=== PATIENT | female | born 1965 | race African-American/Black ===

== ENCOUNTER 2019-03-30 21:04 | Inpatient (IN) ==
[2019-03-30] MEDS ORDERED: MORPHINE IV ONE (22:31)
[2019-03-30] MEDS ORDERED: ZOFRAN IV ONE (22:31)
[2019-03-30] MEDS ORDERED: NS 1,000 ML IV ONE (22:32)
[2019-03-30 22:42] LABS: URINE SOURCE CLEAN CATCH
[2019-03-30 22:59] LABS: UR AMPHETAMINES QUAL NONE DETECTED (NONE DETECT); UR BARBITUATES QUAL NONE DETECTED (NONE DETECT); UR BENZODIAZEPIN QUAL NONE DETECTED (NONE DETECT); UR CANNABINOIDS QUAL NONE DETECTED (NONE DETECT); UR COCAINE QUAL NONE DETECTED (NONE DETECT); UR METHADONE QUAL NONE DETECTED (NONE DETECT); UR METHAMPHETAMINE QUAL NONE DETECTED (NONE DETECT); UR OPIATES QUAL NONE DETECTED (NONE DETECT); UR OXYCODONE QUAL NONE DETECTED (NONE DETECT); UR PCP QUAL NONE DETECTED (NONE DETECT); UR PROPOXYPHENE QUAL NONE DETECTED (NONE DETECT); UR TCA QUAL NONE DETECTED (NONE DETECT)
[2019-03-30 23:03] LABS: AGAP 12; ALBUMIN 4.6 g/dL (3.5-5.0); ALKALINE PHOSPHATASE 74 U/L (32-104); BUN 17 mg/dL (8-22); CALCIUM 9.2 mg/dL (8.8-10.2); CHLORIDE 102 mmol/L (98-107); COSMO 285; CREATININE 0.7 mg/dL (0.5-0.9); ESTIMATED GFR > 60; GLUCOSE 108 mg/dL (70-104); GOT 20 U/L (10-30); GPT 14 U/L (10-36); LIPASE 38 U/L (13-60); POTASSIUM 3.6 mmol/L (3.5-5.1); SODIUM 142 mmol/L (136-145); TCO2 29 mmol/L (25-35); TOTAL PROTEIN 8.1 g/dL (6.3-8.3)
[2019-03-30 23:20] LABS: BILIRUBIN URINE NEGATIVE (NEGATIVE); BLOOD URINE NEGATIVE (NEGATIVE); CLARITY CLEAR (CLEAR); COLOR YELLOW; GLUCOSE URINE NEGATIVE (NEGATIVE); KETONE URINE NEGATIVE (NEGATIVE); LEUKOCYTES URINE NEGATIVE (NEGATIVE); NITRITE URINE NEGATIVE (NEGATIVE); PROTEIN URINE NEGATIVE (NEGATIVE); SP GRAVITY URINE 1.005; UROBILINOGEN URINE NORMAL
[2019-03-31] MEDS ORDERED: DILAUDID IV ONE (00:34)
--- NOTE | 2019-03-31 00:46 | PROVIDER DOCUMENTATION ---
This chart was entered by Arcelia Blevins Scribe, acting as scribe for Pilar Baker MD. HPI-Abdominal Pain/GI Problem - General Chief Complaint: Abdominal Pain Stated Complaint: STOMACH CRAMPS, N/V Time Seen by Provider: 03/30/19 21:13 Source: patient Allergies/Adverse Reactions: Patient Allergies Allergy/AdvReac Type Severity Reaction Status Date / Time gabapentin [From Gralise] Allergy Unknown Verified 03/30/19 21:10 lamotrigine [From Lamictal] Allergy SWELLING Verified 03/30/19 21:10 bupropion [From Wellbutrin] AdvReac Unknown Verified 03/30/19 21:10 cefdinir [From Omnicef] AdvReac ABDOMINAL Verified 03/30/19 21:10 PAIN dicyclomine AdvReac NAUSEA Verified 03/30/19 21:10 duloxetine [From Cymbalta] AdvReac NAUSEA Verified 03/30/19 21:10 escitalopram [From Lexapro] AdvReac ABDOMINAL Verified 03/30/19 21:10 PAIN meloxicam [From Mobic] AdvReac NAUSEA Verified 03/30/19 21:10 morphine AdvReac ITCHING Verified 03/30/19 22:44 quetiapine [From Seroquel] AdvReac ABDOMINAL Verified 03/30/19 21:10 PAIN sulfamethoxazole AdvReac ABDOMINAL Verified 03/30/19 21:10 [From Bactrim] PAIN trimethoprim [From Bactrim] AdvReac ABDOMINAL Verified 03/30/19 21:10 PAIN Home Medications: Home Medication List Medication Instructions Recorded Confirmed Last Taken Type Estrogens, Conjugated [Premarin] 0.9 mg PO DAILY 11/06/14 03/30/19 11/05/14 History L. Rhamnosus/L. Reuteri [Rephresh 1 cap PO DAILY 11/06/14 03/30/19 1 Day Ago History Pro-B Capsule] ~11/05/14 Ondansetron HCl [Zofran] 1 tab PO Q6H PRN PRN #15 tablet 11/06/14 03/30/19 Unknown Rx Topiramate [Topamax] 50 mg PO DAILY 11/06/14 03/30/19 1 Day Ago History ~11/05/14 Amitriptyline HCl 10 mg PO DAILY 03/30/19 03/30/19 Unknown History Buspirone HCl 15 mg PO DAILY 03/30/19 03/30/19 Unknown History Celecoxib 200 mg PO DIRECTED 03/30/19 03/30/19 Unknown History Cyanocobalamin 1 ml IM DIRECTED 03/30/19 03/30/19 Unknown History Hydrocodone/Acetaminophen [[place] 1 tab PO TID 03/30/19 03/30/19 Unknown History 5-325 Tablet] Lisdexamfetamine Dimesylate 20 mg PO DAILY 03/30/19 03/31/19 Unknown History [Vyvanse] Amovig 70 mg IM DIRECTED 03/31/19 Unknown History Carisoprodol [Soma] 500 mg PO DIRECTED 03/31/19 03/31/19 Unknown History Cystoprotek PO DAILY 03/31/19 Unknown History Mybetriq 50 mg PO DAILY 03/31/19 03/31/19 Unknown History Valacyclovir HCl [Valtrex] 500 mg PO DIRECTED 03/31/19 03/31/19 Unknown History - History of Present Illness-ABD Nature of Presenting Problems: 53 yobf c/o generalized abd cramping and n/v starting this afternoon. pt took many otc meds and zofran w/no relief. pt has BM at 1200. pt has hx of ischemic bowel and sts this pain feels similar. She has also had a history of gastric bypass. She endorses some diarrhea. Denies any fevers or chills. Endorses some nausea but no vomiting. Abdominal Pain Onset Location: reports: generalized abdomen Pain Radiation: reports: no radiation Quality of Pain: reports: cramping Severity in ED: reports: mild Onset/Duration: reports: this afternoon Timing: reports: still present Activities at Onset: reports: none Review of Systems - Adult - REVIEW OF SYSTEMS - ADULT Constitutional: reports: no symptoms reported. denies: fever, fatique, night sweats Eyes: reports: no symptoms reported Ears, Nose, Mouth & Throat: reports: no symptoms reported Cardiovascular: reports: no symptoms reported Respiratory: reports: no symptoms reported Gastrointestinal: reports: see HPI, abdominal pain, nausea, vomiting. denies: diarrhea, difficulty swallowing, rectal bleeding Genitourinary: reports: no symptoms reported Musculoskeletal: reports: no symptoms reported Integumentary: reports: no symptoms reported Neurological: reports: no symptoms reported Psychiatric: reports: no symptoms reported Endocrine: reports: no symptoms reported Hematologic/Lymphatic: reports: no symptoms reported Allergic/Immunologic: reports: no symptoms reported All Other Systems: Reviewed and Negative Past History - Adult - PAST MEDICAL HISTORY-ADULT Review of Records: reports: Old Records Reviewed, Nursing Assessment Review, Medications Reviewed, Social history reviewed & non-contributory. Major Childhood Illnesses: reports: Varicella Cardiovascular: reports: denies history Respiratory: reports: denies history Gastrointestinal: reports: other (gastric bypass 06) Obstetrical/Gynecological: reports: denies history Genitourinary: reports: denies history Musculoskeletal: reports: denies history Neurological: reports: denies history Psychiatric: reports: denies history Endocrine/Immune: reports: denies history Other Conditions: reports: denies history - PRIOR SURGERIES/PROCEDURES Surgical/Procedure History: reports: cholecystectomy, hysterectomy, orthopedic (extremity), gastric bypass, other - IMMUNIZATION STATUS Childhood Immunizations: See Nurse Assessment Flu Vaccine: See Nurse Assessment - FAMILY HISTORY Family History: reviewed, not pertinent - SOCIAL HISTORY Smoking: non-smoker Substance Use: none/never Physical Exam-General - PHYSICAL EXAM-ADULT Initial Vital Signs Reviewed: Yes - CONSTITUTIONAL General Appearance: alert, moderate distress. negative: lethargic, slow to respond, obtunded - EYES Eyes: PERRL/EOMI, pink conjunctivae - HEAD, EARS, NOSE, MOUTH & THROAT HENMT: normocephalic/atraumatic, moist mucous membranes, normal ENT inspection - NECK Neck: non-tender, full range of motion, supple, normal inspection - RESPIRATORY Respiratory: chest non-tender, lungs clear, normal breath sounds - CARDIOVASCULAR Cardiovascular: normal peripheral pulses, regular rate, rhythm - GASTROINTESTINAL (ABDOMEN) Abdominal Exam: normal bowel sounds, no organomegaly, no pulsatile mass, distended (mild), tenderness (general diffuse abd ten to palp). negative: non tender, soft, abnormal bowel sounds, rigid, rebound - GENITOURINARY Female Genitalia/Pelvic Exam: deferred - LYMPHATIC Lymphatic: no adenopathy - MUSCULOSKELETAL Back Exam: normal inspection, no CVA tenderness, no vertebral tenderness Extremity: normal range of motion, non-tender, normal inspection Peripheral Pulses: radial (R): 2+, radial (L): 2+ - SKIN Integumentary: normal color, normal turgor, warm/dry - NEUROLOGIC Neurologic: grossly normal, no motor/sensory deficits - PSYCHIATRIC Psych/Mental Status: normal mood/affect, normal thought content, normal thought process, oriented x 3 Progress - PLAN OF CARE/RESULTS Progress/Plan/Lab Results: Vital Signs - 8 hr 03/30/19 21:07 Temperature 98.1 F Pulse Rate 98 H Respiratory Rate 20 Blood Pressure 122/77 O2 Sat by Pulse Oximetry 97 Orders Category Date Time Status NPO Diet 03/30/19 21:[address] ABD/PELVIS W/IV CONT ONLY [CT] Stat Exams 03/30/19 22:30 Ordered CBC WITH DIFF [HEME] Stat Lab 03/30/19 22:25 Ordered COMPREHENSIVE METABOLIC PANEL [CHEM] Stat Lab 03/30/19 22:25 Ordered LACTATE, PLASMA [CHEM] Stat Lab 03/30/19 22:30 Uncollected LIPASE [CHEM] Stat Lab 03/30/19 22:[address] [URINALYSIS] Stat Lab 03/30/19 22:25 Or[address] DRUG SCREEN [address] Stat Lab 03/30/19 22:33 Ordered 0.9% Sodium Chloride Inj [Ns] 1,000 ml Med 03/30/19 22:32 Active IV 999 mls/hr Morphine Med 03/30/19 22:31 Discontinued 4 mg IV NOW ONE Ondansetron [Zofran] Med 03/30/19 22:31 Discontinued 4 mg IV NOW ONE Abd Pain/OB <20 weeks Stat Oth 03/30/19 21:11 Ordered Patient with slightly distended abdomen and diffusely tender. She was ordered morphine but refused it. She is asking specifically for dilaudid, benadryl, and pherngan all IV which I advised I could not give all those medications. CT showing distal small bowel obstruction. No vomiting in the ED. Spoke to Dr Medina mounter [facility] for general surgery who recommended transferring patient to [place] and admitting to hospitlaist and he will see her in consult. He stated that if we can get an NGT in with her history of gastric bypass go ahead but if unable to do not place it. Spoke to Dr Villavicencio, mounter [facility] for hospitalist who accepted patient for admission. Stable for floor. Basic transfer and admit orders placed. Result Diagrams: 03/31/19 01:11 03/30/19 22:16 - CT/MRI 1 CT Study: Abdomen (High grade distal small bowel obstruction with no known transition point.) - CONSULTS/PCP/HOSPITALIST Notification #1 *Consult/PCP/Hospitalist*: Dr Medina Time Discussed: 00:37 (Admit to hospitalist at [facility] if we can pass one with history of bypass, if cant pass it ok to leave it out. ) #2 Consult: Dr Villavicencio Time Discussed: 00:57 Consult Disposition: Admit Departure - Departure Date of Disposition Decision: 03/31/19 Time of Disposition Decision: 00:57 DIAGNOSIS: Small bowel obstruction Disposition: ADMITTED INPATIENT Certified Medical Emergency: Emergent Condition: Stable - Critical Care Note This patient required my direct & personal management of CC.: No Attestation - Physician/ BETH Attestation Patient care was provided by Advanced Practice Provider:: No The physician spent face to face time with patient:: Yes Advanced Practice Provider documentation review:: Supervising physician onsite and consulted in the evaluation and care of this patient. The physician did have a face to face encounter with the patient. This chart was documented by the indicated scribe, (Arcelia Blevins Scribe) and accurately reflects the services I performed and decisions made by me, Pilar Baker MD, as attested by the provider's signature.
[2019-03-31 01:16] LABS: BASO# 0.01 X1000 (0.0-0.2); BASO% 0.1 % (0.0-0.8); EOS# 0.01 X1000 (0.0-0.7); EOS% 0.1 % (0.0-10.0); HEMATOCRIT 34.9 % (37.0-47.0); HEMOGLOBIN 10.7 g/dL (12.0-16.0); IMM GRAN# 0.02 X1000 (0.0-0.04); IMM GRAN% 0.2 % (0.0-0.5); LYMPH# 0.81 X1000 (1.2-3.4); LYMPH% 8.3 % (20.5-51.1); MCH 25.3 PG (27-31); MCHC 30.7 g/dL (33-37); MCV 82.5 FL (81-99); MONO# 0.32 X1000 (0.11-0.59); MONO% 3.3 % (1.7-9.3); MPV 9.9 FL (7.4-10.4); NEUT# 8.55 X1000 (1.4-6.5); PLT 282 X1000 (130-400); RBC 4.23 XMIL (4.2-5.4); RDW 16.4 % (11.5-14.5); WBC 9.72 X1000 (4.8-10.8)
[2019-03-31] MEDS ORDERED: NS 1,000 ML IV ONE (02:05)
[2019-03-31 02:06] LABS: ANISOCYTOSIS 1+; BANDS 2 % (0-1); HYPOCHROM 1+; LYMPHS 6 % (21-51); MICROCYTOSIS 1+; POIKILOCYTOSIS 2+; SEGS 92 % (42-75); TARGET CELLS 1+
[2019-03-31 02:07] LABS: OVALOCYTES 1+
[2019-03-31] MEDS ORDERED: TYLENOL PO PRN (03:10)
[2019-03-31] MEDS ORDERED: SODIUM CHLORIDE 0.9% INJ SCH (03:45)
[2019-03-31] MEDS ORDERED: NEXIUM IV SCH (03:45)
[2019-03-31] MEDS: PROTONIX IV SCH (03:47)
[2019-03-31] MEDS: SODIUM CHLORIDE 0.9% INJ SCH (03:47)
[2019-03-31] MEDS: DILAUDID IV PRN ×5 (03:48→18:29)
[2019-03-31] MEDS: NS 1,000 ML IV SCH ×3 (04:14→20:20)
[2019-03-31 06:28] LABS: BASO# 0.01 X1000 (0.0-0.2); BASO% 0.2 % (0.0-0.8); HEMATOCRIT 29.8 % (37.0-47.0); HEMOGLOBIN 9.2 g/dL (12.0-16.0); LYMPH% 11.3 % (20.5-51.1); MCH 25.2 PG (27-31); MCHC 30.9 g/dL (33-37); MCV 81.6 FL (81-99); MONO% 4.8 % (1.7-9.3); NEUT# 5.18 X1000 (1.4-6.5); NEUT% 83.7 % (42.2-75.2); PLT 272 X1000 (130-400); RBC 3.65 XMIL (4.2-5.4); RDW 16.6 % (11.5-14.5); WBC 6.19 X1000 (4.8-10.8)
--- NOTE | 2019-03-31 06:28 | HISTORY AND PHYSICAL ---
PRIMARY CARE PHYSICIAN: Dr. Vito Casey CHIEF COMPLAINT: Stomach cramps. HISTORY OF PRESENT ILLNESS: Ms. Jade is a 53-year-old female. She presents to [facility] ER today with complaints of stomach cramping that started around 3:00 in the evening today. The patient states she had had this problem before back in 2008 when she had a small bowel obstruction, and had to have a bowel resection. She states that at that time when she started feeling the stomach cramps she tried to take guto-ujp-ddybift Pepcid AC, Tums, and some prescription Phenergan. When the pain did not subside, she decided to come to the ER around 8:00 in the evening tonight. The patient is not complaining of any stomach cramping at this time. However, she did have some Dilaudid in the ER. The patient denies any blood in her stool. She states that she did have some blood in her urine last week a couple of times, but it has since subsided. She has not complained of any chest pain. She has not had any nausea or any vomiting. Abdomen is a little tender to the touch. Bowel sounds are present. The patient does state she does have a cough. She has not had any fever or chills, and she is not producing any sputum with her cough. She is not short of breath. Denies any chest pain. When I ask her about her urine having some blood in it, the patient states that it is just a few times. I asked her if she has had any problems, ever had any kidney stones, or felt like she had a UTI and she stated that she had had kidney stones in the past, but she did not think she had a UTI. However, these symptoms have subsided now. CT of the abdomen and pelvis was done in the ER. CT showed distal small-bowel obstruction. Dr. Medina was consulted. Dr. Medina recommended placing an NG tube if we can have the NG tube placed due to her history of gastric bypass. The patient refuses to have a NG tube placed. She states that the last time she had a small bowel obstruction that this actually caused her more problems, and she ended up having to resolve and have a resection. This was in 2008. PAST MEDICAL HISTORY: The patient is positive for having had a gastric bypass in 2005, and had to have a bowel resection in 2008 from her gastric bypass. She also has extensive medical history. She has had TMJ, IBS, interstitial cystitis, fibromyalgia, and hyperglycemia. 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 PAST SURGICAL HISTORY: Hysterectomy, gastric bypass in 2005, bowel resection in 2008, carpal tunnel surgery, and rotator cuff surgery. FAMILY HISTORY: Mother and dad are both significant for heart problems. Mother had breast cancer. SOCIAL HISTORY: Patient lives alone. She is recently . Her spouse committed suicide in January of 2019. 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 She denies any smoking, alcohol or illicit drug abuse. ALLERGIES: 1. Gabapentin. 2. Lamictal. 3. Wellbutrin. 4. Omnicef. 5. Dicyclomine. 6. Cymbalta. 7. Lexapro. 8. Mobic. 9. Morphine. 10. Seroquel. 11. Bactrim. MEDICATIONS: 1. Topamax 50 mg p.o. daily. 2. Refresh tablets 1 capsule p.o. daily. 3. Premarin 0.9 mg p.o. daily. 4. Amitriptyline 10 mg p.o. daily. 5. Buspirone 10 mg p.o. daily. 6. Celecoxib 200 mg p.o. as directed. 7. Vitamin B12 1000 mg IM as directed. 8. [place] 5/325 one tablet p.o. t.i.d. 9. Vyvanse 20 mg p.o. daily. 10. CystoProtek p.o. daily. 11. Valtrex 500 mg p.o. as directed. 12. Amovig 70 mg IM as directed. 13. Soma 500 mg p.o. as directed. 14. Myrbetriq 50 mg p.o. daily p.r.n. 15. Zofran 4 mg 1 to 2 tablets p.o. q.6 hours p.r.n. LABORATORY AND DIAGNOSTICS: White blood cell count 9.72, red blood cell count 4.23, hemoglobin 10.7, hematocrit 34.9, MCV 82.5, MCH 25.3, MCHC 30.7, RDW 16.4, and platelet count 282,000. Sodium 142, potassium 3.6, chloride 102, carbon dioxide 29, anion gap 12, BUN 17, creatinine 0.7. GFR greater than 60, glucose 108, calcium is 9.2, total bilirubin is 0.20, AST is 20, ALT is 14, and lipase is 38. Plasma lactate is 1.8. Urinalysis is negative. Urine toxicology is negative. CT of abdomen and pelvis shows a small bowel obstruction in the distal small bowel. REVIEW OF SYSTEMS: A 12 point review of systems has been obtained. All are negative except what is stated above in HPI. PHYSICAL EXAMINATION: VITAL SIGNS: Temperature 98.6, pulse rate 81, respiratory rate 16, blood pressure 103/72, O2 saturation 98% on room air. Weight 136 pounds, height 5 feet 6 inches. GENERAL: This is a 53-year-old female. She is lying in bed. She is in no acute distress. She is well nourished and well developed. HEENT: Atraumatic, normocephalic. Pupils equal, round, and reactive to light. Extraocular movements intact. Sclerae anicteric. Mucous membranes are moist. NECK: Supple. No lymphadenopathy. Trachea is midline. No JVD, thyromegaly or bruits. CARDIOVASCULAR: Regular rate and rhythm. No murmurs, gallops, or rubs appreciated. RESPIRATORY: Lung sounds are clear with equal chest excursion. Respirations are nonlabored. No accessory muscle usage. ABDOMEN: Distended. Mildly firm and mildly tender. Bowel sounds are present x4. NEUROLOGIC: Cranial nerves 2-12 are intact. Patient is awake, alert, oriented, and able to follow all commands appropriately. MUSCULOSKELETAL: Full strength noted. No abnormalities. No deformities. EXTREMITIES: No clubbing, no cyanosis, no edema. DP and PT pulses are present and palpable. SKIN: Warm, dry, and intact. No rashes. No bruises. No diaphoresis. ASSESSMENT AND PLAN: 1. Small bowel obstruction. We will admit this patient to the medical floor. We have consulted Dr. Medina for surgery. The patient is being held NPO. We are going to give her IV fluid hydration. We are going to give her Dilaudid p.r.n. for pain management. The patient does not wish to have a NG tube placed at this time since the last time she had one placed it resulted in her having to have a small bowel resection. We are going to refer this to Dr. Medina. The patient is not having any nausea or vomiting at this time. I have ordered her Zofran as needed for nausea. 2. Chronic pain. The patient does have a history of chronic pain and fibromyalgia. She has a bad SI joint and bad hip joint. We are going to give her Dilaudid p.r.n. She is NPO at this time so we cannot restart her [place] 5s as she takes at home per Pain Management. 3. Hypoglycemia. Recheck her labs in the morning. Her glucose on labs today is 108 so she is in a regular range at this time. We will continue to follow up with this, and observe her for hypoglycemia. 4. Deep venous thrombosis prophylaxis. I have placed SCD's on this patient. We are going to hold off on blood thinners at this time because of her small bowel obstruction. 5. Gastrointestinal prophylaxis. I am going to order her IV Protonix daily. We have admitted patient to medical floor, place her on IV fluid hydration. We are going to hold her NPO at this time, give her IV pain medication, IV Protonix and Zofran as needed for nausea. I have reordered her labs for this morning. We consulted Dr. Medina for surgery. All other for further recommendations pending hospital course and lab data. Dictated by ERICA Chavez for Cody Villavicencio MD I have performed a face to face diagnostic evaluation. Labs/ Xrays- reviewed. Exam- Chest- clear, CV- regular, Abd- diffuse tenderness. A/P- SBO- Admit, NPO, antiemetics, pain control, General surgery consult. Dr. Villavicencio cc: MD Vito Ibarra MD Matthew L. Figh, MD MTDD
[2019-03-31 06:34] LABS: INR 1.13; PROTIME 14.7 Seconds (11.0-16.0)
[2019-03-31 06:52] LABS: AGAP 8; BUN 17 mg/dL (8-22); CALCIUM 9.1 mg/dL (8.8-10.2); CHLORIDE 106 mmol/L (98-107); COSMO 281; CREATININE 0.6 mg/dL (0.5-0.9); ESTIMATED GFR > 60; GLUCOSE 130 mg/dL (70-104); POTASSIUM 3.9 mmol/L (3.5-5.1); SODIUM 139 mmol/L (136-145); TCO2 25 mmol/L (25-35)
--- NOTE | 2019-03-31 07:37 | Diag Imaging Result Doc PS360 ---
EXAM: CT ABD/PELVIS W/IV CONT ONLY 03/30/2019 HISTORY: abd pain, h/o ischemic gut TECHNIQUE: This exam was performed using automated exposure control, adjustment of mA or kV according to patient size, and/or use of iterative reconstruction technique. COMMENT: There are calcified nodes in the right hilum. There has been gastric bypass. There is a hiatal hernia. There has been cholecystectomy. The spleen and adrenal glands are not enlarged. The pancreas is unremarkable. The kidneys are without evidence of hydronephrosis or mass. There is no definite abnormality in the liver. There are markedly distended fluid-filled small bowel loops throughout much of the abdomen and pelvis. There is some fecal debris in the ascending colon without evidence of dilatation. The distal small bowel is not distended. There is no evidence of mucosal thickening in the distended bowel loops. There is a small amount of free fluid in the cul-de-sac. The regional skeleton appears to be intact. IMPRESSION: Small bowel obstruction. Given the postsurgical changes in the possibility of adhesions, anastomotic stricture or internal hernia cannot be excluded. No evidence of ischemic enteritis. Electronically signed by Norm Malik 03/31/2019 7:35 AM
--- NOTE | 2019-03-31 08:23 | GENERAL SURGERY CONSULTATION ---
DATE: 03/31/2019 REQUESTING PHYSICIAN: Hospitalist. REASON FOR CONSULTATION: Bowel obstruction. HISTORY OF PRESENT ILLNESS: A 53-year-old female who presented to the emergency department complaining of cramping abdominal pain since 3:00 in the afternoon the day of presentation. She denies any vomiting, but reports nausea. She says she had a normal bowel movement starting earlier today. She does have a history of gastric bypass. She was seen in emergency department, and underwent a CT scan and showed a bowel obstruction. She was admitted and the resuscitation process was started. I was asked to weigh an opinion. The patient says she is feeling a little bit better now that she has had pain medication. PAST MEDICAL HISTORY: Fibromyalgia, hyperglycemia, history of shingles, interstitial cystitis, history of depression, history of anxiety, and history of ADHD. PAST SURGICAL HISTORY: Includes cholecystectomy, hysterectomy, tubal ligation, carpal tunnel, abdominoplasty, rotator cuff surgery, exploratory laparotomy, gastric bypass, and C5-C6 fusion. SOCIAL HISTORY: Denies smoking. FAMILY HISTORY: Reviewed with the patient and noncontributory. HOME MEDICATIONS: Gabapentin, Lamictal, Wellbutrin, Omnicef, Cymbalta, Lexapro, Mobic, morphine, Seroquel, estrogens, Refresh, Zofran, Topamax, buspirone, [place] 5, Vyvanse, Soma, and Valtrex. Full list reviewed. ALLERGIES: Extensive list including Bactrim, Seroquel, Mobic, Lexapro, Cymbalta, Omnicef, Wellbutrin, Lamictal, and gabapentin. REVIEW OF SYSTEMS: Full 14 systems reviewed and negative except as specified in HPI. PHYSICAL EXAMINATION: Vital Signs: Patient is currently afebrile. Her vital signs stable. General: No acute distress. Resting comfortably. HEENT: Normocephalic, atraumatic. Pupils equal, round, and reactive to light. Mucous membranes moist. Oropharynx benign. Neck: Supple. Trachea midline. Cardiovascular: Regular rate and rhythm. Lungs: Grossly clear. Abdomen: Soft and nondistended. Nontender at this time. Extremities: Moves all extremities. Neurologic: Grossly intact. Skin: No signs of jaundice. Vascular: All extremities perfused. LABORATORY: White blood cell count 9, hematocrit 34, and platelet count 282,000. Remainder of labs reviewed. CT scan independently reviewed and radiology report reviewed and noted above. ASSESSMENT AND PLAN: A 53-year-old female with a partial small bowel obstruction. Partial small bowel obstruction. At this time, I would like to manage her nonoperatively with NPO and bowel rest. We will continue to monitor her closely. Repeat a flat and upright on her later today. I appreciate the consult. cc: Shoaib Medina MD
--- NOTE | 2019-03-31 08:53 | Diag Imaging Result Doc PS360 ---
EXAM: FLAT/UPRIGHT ABD/1 VIEW CHEST 03/31/2019 HISTORY: bowel obstruction TECHNIQUE: A and upright abdomen with AP chest COMMENT: The left hemidiaphragm is elevated compared to the previous study of 11/06/2014 and there is apparent atelectasis over the left hemidiaphragm. There are surgical clips and suture lines in the left upper quadrant and in the gallbladder fossa. There is gas in the colon. There are distended small bowel loops in the midabdomen. This was not the case on the previous study. There are some phleboliths in the pelvis. No evidence of organomegaly or mass is present. IMPRESSION: 1. Left lower lobe atelectasis. 2. Ileus versus partial small bowel obstruction. Electronically signed by Norm Malik 03/31/2019 8:50 AM
[2019-03-31] MEDS: ZOFRAN IV PRN ×2 (09:01→13:00)
--- NOTE | 2019-03-31 11:28 | PROGRESS NOTE ---
DATE: 03/31/2019 INTERVAL HISTORY: No acute events overnight. Ms. Jade was admitted for small bowel obstruction. Her vitals were largely unremarkable. SUBJECTIVE: She is complaining of nausea without any vomiting. She has not been passing gas. Her abdominal cramps are persistent. She is needing IV Dilaudid. We discussed about pathophysiology of small-bowel obstruction. We discussed about operative versus nonoperative management. I answered all of her questions. Her multiple family members are also at bedside. VITALS: Temperature 97.6 degrees, pulse 76, respiratory 20, blood pressure 98/63, saturating 99% on room air. PHYSICAL EXAMINATION: General: Does not appear in any acute distress. Lungs: Air entry bilaterally equal. No wheeze, rhonchi, crackles. Cardiovascular: S1, S2 normal. No murmur or gallop. Abdomen: Soft, mildly distended. Generalized tender. Tympanic to percussion. Hypoactive bowel sounds. No hepatosplenomegaly. Extremities: No lower extremity edema. LABS: Suggestive of normocytic anemia, normal electrolytes and kidney function. Urine toxicology is unremarkable. MICROBIOLOGY: No microbiological data. X-RAYS: Abdominal x-ray today morning has left lower lobe atelectasis and ileus versus partial small-bowel obstruction. ASSESSMENT AND PLAN: 1. Small-bowel obstruction with prior history of multiple abdominal surgeries, including hysterectomy, gastric bypass, small-bowel obstruction requiring bowel resection and cholecystectomy. Surgical team on board and is currently recommending nonoperative management. The patient had previously refused nasogastric tube. She is not vomiting at the moment though. I will continue intravenous fluids and intravenous hydromorphone as needed. I will follow up abdominal examination and abdominal x-ray. I will also give intravenous antiemetics as needed for vomiting. 2. History of fibromyalgia and chronic pain. I will continue intravenous Dilaudid as needed at home. She is listed to be taking topiramate, amitriptyline, buspirone, celecoxib, [place], which I would resume once she is able to take by mouth. 3. Deep vein thrombosis prophylaxis with sequential compression devices. 4. Gastrointestinal prophylaxis. Continue intravenous Protonix. DISPOSITION: Awaiting resolution of small-bowel obstruction nonoperatively. Plan of care discussed with her and her family members. Their questions have been answered. cc: Keshav Garzon MD
[2019-03-31] MEDS ORDERED: BENADRYL IV ONE (21:08)
[2019-03-31] MEDS: DEMEROL IV PRN (22:13)
[2019-04-01] MEDS: ZOFRAN IV PRN ×3 (00:46→11:42)
[2019-04-01] MEDS: PROTONIX IV SCH ×2 (02:25→04:49)
[2019-04-01] MEDS: DEMEROL IV PRN (02:25)
[2019-04-01] MEDS: SODIUM CHLORIDE 0.9% INJ SCH ×2 (02:25→04:49)
[2019-04-01] MEDS: NS 1,000 ML IV SCH ×2 (02:26→15:02)
--- NOTE | 2019-04-01 06:01 | GENERAL SURGERY PROGRESS NOTE ---
DATE: 04/01/2019 SUBJECTIVE: Patient is complaining of abdominal pain. She is saying she has passed gas. OBJECTIVE: Vital Signs: Patient is currently afebrile. Her vital signs have been stable. She has not been tachycardic. Her blood pressure has been normal. General: Appears uncomfortable, female. HEENT: Normocephalic, atraumatic. Pupils equal, round, reactive to light. Mucous membranes moist. Oropharynx benign. Neck: Supple. Trachea midline. Cardiovascular: Regular rate and rhythm. Lungs: Grossly clear. Abdomen: Mildly distended. No peritoneal signs on examination. No real significant signs of tenderness when I was palpating. Extremities: Moves all extremities. Neurologic: Grossly intact. Skin: No signs of jaundice. Vascular: All extremities perfused. LABORATORY DATA: Reviewed from yesterday, white blood cell count is normal but there is a left shift. ASSESSMENT AND PLAN: A 53-year-old with bowel obstruction. 1. Bowel obstruction. At this time, patient is complaining of some significant pain although she does not look like she is tachycardic. We will switch her back over to Dilaudid. We will get a small bowel series to see if this is an anastomotic stricture versus adhesions versus even the possibility of an internal hernia. We will repeat a plasma lactic acid just to make sure she does not seem to be trending in the wrong direction. At this point, would still favor nonoperative management, but we will make further recommendations after the small-bowel series has been done. cc: Shoaib Medina MD
[2019-04-01] MEDS: DILAUDID IV PRN ×4 (06:10→15:01)
[2019-04-01 06:49] LABS: AGAP 14; BUN 18 mg/dL (8-22); CALCIUM 8.8 mg/dL (8.8-10.2); CHLORIDE 105 mmol/L (98-107); COSMO 282; CREATININE 0.6 mg/dL (0.5-0.9); ESTIMATED GFR > 60; GLUCOSE 117 mg/dL (70-104); MAGNESIUM 1.9 mg/dL (1.5-2.7); POTASSIUM 4.1 mmol/L (3.5-5.1); SODIUM 140 mmol/L (136-145); TCO2 21 mmol/L (25-35)
--- NOTE | 2019-04-01 08:23 | Diag Imaging Result Doc PS360 ---
EXAM: ABDOMEN FLAT/UPRIGHT 04/01/2019 HISTORY: Follow up SBO TECHNIQUE: Flat and upright abdomen COMMENT: There are multiple distended small bowel loops with air-fluid levels in the mid and upper abdomen. There is some fecalized contents demonstrated in the right abdomen. There is some stool in the rectum. Compared to 03/31/2019 there is slightly more small bowel gas and dilatation. IMPRESSION: Worsened small bowel obstruction. Electronically signed by Norm Malik 04/01/2019 8:21 AM
[2019-04-01] MEDS ORDERED: LEVAQUIN 750 MG/D5W 750 MG/150 ML IVPB IV SCH (13:15)
--- NOTE | 2019-04-01 13:50 | Diag Imaging Result Doc PS360 ---
SMALL BOWEL SERIES ONLY - 04/01/2019 INDICATION: follow up obstruction TECHNIQUE: Seven images were obtained COMPARISON: X-rays from 03/31/2019 FINDINGS: There is severe, high-grade proximal small bowel obstruction. After four hours, contrast had moved to probably less than a quarter of all the small bowel. No definite colon or rectal gas. IMPRESSION: High-grade small bowel obstruction. Electronically signed by German Oakes 04/01/2019 1:47 PM
--- NOTE | 2019-04-01 13:57 | GENERAL SURGERY PROGRESS NOTE ---
DATE: 04/01/2019 Reviewed small-bowel imaging. She does not seem to have any progression of the contrast suggesting at least a high-grade obstruction. We will plan on surgical intervention today. Discussed with her the risks, benefits, and alternatives, risks including, but not limited to bleeding, infection, risk of anesthesia, risk of injury to bowel, risk of needing ostomy. Discussed with the patient again. We will consider first exploratory laparotomy. cc: Shoaib Medina MD
[2019-04-01] MEDS ORDERED: XYLOCAINE-MPF 2% ONE (16:00)
[2019-04-01] MEDS ORDERED: QUELICIN (DOSE) ONE (16:00)
[2019-04-01] MEDS ORDERED: DIPRIVAN 1% ONE (16:00)
[2019-04-01] MEDS ORDERED: SENSORCAINE 0.25%/EPI 1:200,000 ONE (16:13)
[2019-04-01] MEDS ORDERED: SODIUM CHLORIDE 0.9% ONE (16:25)
[2019-04-01] MEDS ORDERED: EXPAREL 1.3% ONE (16:25)
[2019-04-01] MEDS ORDERED: MARCAINE 0.25% ONE (16:25)
[2019-04-01] MEDS ORDERED: DECADRON ONE (16:56)
[2019-04-01] MEDS ORDERED: ZOFRAN ONE (16:56)
[2019-04-01] MEDS ORDERED: FENTANYL ONE (17:08)
--- NOTE | 2019-04-01 17:12 | PROGRESS NOTE ---
DATE: 04/01/2019 INTERVAL HISTORY: Abdominal x-ray suggested persistent high-grade small bowel obstruction, which was confirmed on small bowel barium series. The patient has been feeling nauseous and has been having dry heaves, though has not vomited. General Surgery team is planning exploratory laparotomy today. The patient had multiple family members at bedside. VITALS: Temperature of 98.9 degrees, pulse 86, respiratory rate 18, blood pressure 106/69, saturating 96% on 2 L nasal cannula. PHYSICAL EXAMINATION: General: She appears anxious, not in acute distress. HEENT: Oral cavity is moist. Respiratory: Air entry bilaterally equal. No wheeze rhonchi or crackles. Cardiovascular: S1 normal. No murmur or gallop. Abdomen: Soft. Generalized tender, distended, tympanic to percussion. Extremity: No lower extremity edema. Neurologic: She is alert and oriented x3. LABS: Her lactate was normal. IMAGING: Abdominal x-ray today has worsened small bowel obstruction. Small bowel x-ray had high- grade small bowel obstruction. ASSESSMENT AND PLAN: 1. Small bowel obstruction with prior history of multiple abdominal surgeries including hysterectomy, gastric bypass and small bowel obstruction requiring bowel resection and cholecystectomy. She did not trip improve through nonoperative measures. Surgical team plan exploratory laparotomy today. Continue intravenous fluids intravenous hydromorphone and intravenous antiemetic as needed. 2. History of fibromyalgia and chronic pain. Continue intravenous Dilaudid as needed at the moment and when she is able to take by mouth I will resume her topiramate, amitriptyline, aspirin, celecoxib. 3. Deep venous thrombosis prophylaxis. Sequential compression devices. Gastrointestinal prophylaxis. Protonix. DISPOSITION: Awaiting surgery. Plan of care discussed with her. Her questions have been answered. cc: Keshav Garzon MD
[2019-04-01] MEDS ORDERED: OFIRMEV 1000 MG/ISOTONIC SOLN 1,000 MG/100 ML BOTTLE ONE (17:33)
[2019-04-01] MEDS ORDERED: ROBINUL ONE (17:54)
[2019-04-01] MEDS ORDERED: DILAUDID PCA VIAL ONE (18:29)
[2019-04-01] MEDS ORDERED: NS 1,000 ML ONE (18:39)
[2019-04-01 18:42] LABS: URINE SOURCE CATH
[2019-04-01 18:50] LABS: BILIRUBIN URINE NEGATIVE (NEGATIVE); BLOOD URINE TRACE (NEGATIVE); COLOR YELLOW; GLUCOSE URINE NEGATIVE (NEGATIVE); KETONE URINE 40 mg/dL (NEGATIVE); LEUKOCYTES URINE NEGATIVE (NEGATIVE); NITRITE URINE POSITIVE (NEGATIVE); PH URINE 5.5; PROTEIN URINE TRACE mg/dL (NEGATIVE); SP GRAVITY URINE 1.027; TURBIDITY URINE CLEAR (CLEAR); UR EPITHELIAL CELLS <10 /HPF (<10); URINE BACTERIA 4+ /HPF; URINE RBC <10 /HPF (<10); URINE WBC <10 /HPF (<10); UROBILINOGEN URINE NORMAL (NORMAL)
[2019-04-01] MEDS ORDERED: NARCAN IV PRN ×2 (19:34→20:30)
[2019-04-01] MEDS ORDERED: MORPHINE PCA IV PRN (19:34)
[2019-04-01] MEDS ORDERED: DILAUDID PCA VIAL IV PRN (20:30)
[2019-04-01] MEDS ORDERED: FLAGYL 500 MG/NS 500 MG/100 ML IVPB IV SCH (21:00)
--- NOTE | 2019-04-01 21:06 | OPERATIVE NOTE ---
PROCEDURE DATE: 04/01/2019 PREOPERATIVE DIAGNOSIS: High-grade small-bowel obstruction. POSTOPERATIVE DIAGNOSIS: High-grade small-bowel obstruction. PROCEDURE: Diagnostic laparoscopy converted to exploratory laparotomy with lysis of adhesions. SURGEON: Shoaib Medina MD. SHINGLE SAWYER: None. ANESTHESIA: General endotracheal. OPERATIVE FINDINGS: Change in caliber of the bowel noted distal to her previous small-bowel resection. It looked like it was adhesion causing the obstruction. COMPLICATIONS: None at time of this dictation. ESTIMATED BLOOD LOSS: 20 mL. SPECIMENS REMOVED: None. BRIEF HISTORY: A 53-year-old female with a complicated past surgical history presenting with a bowel obstruction. We had done a small-bowel series, and it failed to progress. She was getting clinically worse, felt that she needed a surgical intervention. The risks, benefits, and alternatives were discussed. All questions answered. DESCRIPTION OF PROCEDURE: After informed consent was obtained, the patient was brought to the operative theater, transferred to operating table and placed in supine position. General endotracheal anesthesia was then performed without complication. A formal time-out was then performed confirming patient, date, procedure. All in agreement at that time. Attention was given to the abdomen. We initially elected to do laparoscopically. We made our first trocar incision in the midline with a 5 mm trocar supraumbilically. Once we had entered the abdomen, we connected to insufflation. We entered the abdomen using Optiview technique. Upon insufflation, we noticed that there was significantly dilated bowel and not enough room to place any other trocar safely. I felt at this point we needed to proceed with a midline incision. We removed the trocars, disconnected insufflation. Pneumoperitoneum was released. We then made a standard midline incision. Upon entering the abdomen, a significant amount of dilated bowel was eviscerated. We eviscerated the whole small bowel. There were adhesions noted around the level of the umbilicus just below the umbilicus. There was small bowel stuck close to the fascia. This was the point of obstruction. Using Metzenbaum scissors, we were able to dissect it off cleanly. There was 1 small serosal tear, which we repaired with 2 interrupted silk stitches with good results. We did imbricate these. We then ran the bowel once we were able to free it up. We found the ligament of Treitz, ran back to the Delvis-en-Y gastric bypass and then back up to what appeared to be an antecolic limb up to the stomach. We placed an NG tube, confirmed that it was going into this limb. We then ran the small bowel again. We were able to identify all the aspect of the bowel including the Delvis limb, the main limb to the gastric pouch and saw her previous small bowel resection anastomosis. It appeared to be viable. All the anastomoses appeared to be patent without any strictures. We were able to milk succus around all of them. Once we had done this and sufficiently decompressed the bowel, we ran it again, did not see any other injuries. We placed the bowel back into the abdomen in gentle cascading fashion. We then closed the fascia with #1 interrupted Vicryl the entirety of the length of the incision. We were able to place the bowel back into the abdomen. We then closed the skin after irrigating it with jeovany. The patient tolerated procedure well, will be transferred back to the recovery room. cc: Shoaib Medina MD
[2019-04-01] MEDS: LR 1,000 ML IV SCH (22:49)
[2019-04-02] MEDS: PROTONIX IV SCH (05:54)
[2019-04-02] MEDS: SODIUM CHLORIDE 0.9% INJ SCH (05:54)
[2019-04-02] MEDS: NS 1,000 ML IV SCH ×3 (05:54→16:44)
--- NOTE | 2019-04-02 06:36 | GENERAL SURGERY PROGRESS NOTE ---
DATE: 04/02/2019 SUBJECTIVE: Patient says she is feeling better than she did before the operation. She is having some incisional pain, but otherwise doing okay. OBJECTIVE: Vital Signs: Patient is currently afebrile. She has got a mild tachycardia, but her hemodynamics have otherwise been stable. General: No acute distress. Cardiovascular: Some mild tachycardia. Lungs: Grossly clear. Abdomen: Soft, appropriately tender. ASSESSMENT AND PLAN: A 53-year-old female, currently postoperative day #1 from exploratory laparotomy with lysis of adhesions. Postop state. At this time, we will remove her Ellis catheter, stop her IV antibiotics. We will, hopefully, get her to ambulate today and continue routine postoperative care. cc: Shoaib Medina MD
[2019-04-02 07:37] LABS: AGAP 9; BUN 10 mg/dL (8-22); CALCIUM 8.3 mg/dL (8.8-10.2); CHLORIDE 103 mmol/L (98-107); COSMO 275; CREATININE 0.6 mg/dL (0.5-0.9); ESTIMATED GFR > 60; GLUCOSE 103 mg/dL (70-104); POTASSIUM 3.9 mmol/L (3.5-5.1); SODIUM 138 mmol/L (136-145); TCO2 26 mmol/L (25-35)
[2019-04-02] MEDS: BENADRYL IV PRN ×2 (09:56→20:25)
[2019-04-02] MEDS: LOVENOX SUBQ SCH (09:57)
[2019-04-02] MEDS ORDERED: TYLENOL PO ONE (12:18)
[2019-04-02] MEDS ORDERED: CHLORASEPTIC SPRAY MT PRN (12:54)
--- NOTE | 2019-04-02 18:46 | PROGRESS NOTE ---
DATE: 04/02/2019 INTERVAL HISTORY: The patient underwent diagnostic laparoscopy converted to exploratory laparotomy with lysis of adhesions on 04/01/2019, which she tolerated well. Postoperatively, she did have NG tube and Ellis catheter. Ellis catheter was removed today. Urine culture is growing gram-negative rods, though patient does not have symptoms, and she did not have pyuria. SUBJECTIVE: She is complaining that her abdominal pain is present, however, significantly better than before. She is on hydromorphone RIP TAILER pump. We discussed about the natural progression of postoperative course. I answered all of her questions. She did have a temperature of 100.7 degrees one time. Otherwise, temperature is 99 degrees. She does have postoperative tachycardia with heart rate of 92, blood pressure 110/66, saturating 94% on room air. PHYSICAL EXAMINATION: Not in any acute distress. Intermittently drowsy. Oral cavity is moist. Air entry bilaterally equal. She has a poor inspiratory effort because of abdominal pain and breath sounds are not clearly audible. S1, S2 normal. Tachycardic. No murmur, rub, or gallop.Abdomen: Soft, distended, tympanic to percussion, generalized tenderness. No bowel sounds. No lower extremity edema. She has a nasogastric tube. She is alert and oriented x3 when aroused, but intermittently while resting, she goes to sleep. DIAGNOSTIC DATA: No CBC today. BMP is suggestive of normal electrolytes. Microbiology, urine culture has gram-negative rods. No new imaging today. ASSESSMENT AND PLAN: 1. Small-bowel obstruction with prior history of hysterectomy, gastric bypass, and small-bowel obstruction requiring bowel resection in the past with cholecystectomy as well. She did not improve with nonoperative management and now is status post laparotomy in addition to lysis on 04/01/2019. Continue nasogastric tube management as per surgical team's recommendation. She still does not have bowel sounds or has not been passing gas yet. I will continue NPO status. She is on intravenous hydromorphone pump. 2. History of fibromyalgia and chronic pain. She is currently on her intravenous hydromorphone pump. When she is able to take by mouth, I will resume her topiramate, amitriptyline, aspirin, and celecoxib eventually. 3. Gram-negative rods in culture. Patient did not have pyuria and she is not symptomatic of this. I will follow up with CBC. Though she had low-grade fever spike of 100.7, I would avoid antibiotics at the moment. 4. Deep vein thrombosis prophylaxis. Enoxaparin. DISPOSITION: I will continue to monitor patient inside the hospital. Plan of care discussed with her. Her questions have been answered. cc: Keshav Garzon MD
[2019-04-03] MEDS: PROTONIX IV SCH (03:38)
[2019-04-03] MEDS: SODIUM CHLORIDE 0.9% INJ SCH (03:38)
[2019-04-03] MEDS: NS 1,000 ML IV SCH ×2 (05:34→23:04)
--- NOTE | 2019-04-03 06:06 | GENERAL SURGERY PROGRESS NOTE ---
DATE: 04/03/2019 SUBJECTIVE: Patient seems to be doing okay. She is feeling better. OBJECTIVE: Vital Signs: Patient is currently afebrile. She does have a low-grade tachycardia in the 1 teens. The remainder of her vital signs have been stable. General: No acute distress. Cardiovascular: Mild tachycardia. Lungs: Grossly clear. Abdomen: Soft. Appropriately tender. Hypoactive bowel sounds auscultated. ASSESSMENT AND PLAN: A 53-year-old female currently postoperative day #2 from exploratory laparotomy with lysis of adhesions. 1. Postoperative state. At this time, continue current treatment. We will continue resuscitation. I think she has a postoperative ileus. Given the fact that she had a bowel obstruction going in, I am not surprised that this persists. May need to consider in the near future starting her on Clinimix, but otherwise continue current treatment. Continue current management. 2. Tachycardia. At this time, continue to monitor. We will defer to the hospitalist. cc: Shoaib Medina MD
[2019-04-03 07:30] LABS: BASO# 0.04 X1000 (0.0-0.2); BASO% 0.5 % (0.0-0.8); EOS# 0.02 X1000 (0.0-0.7); EOS% 0.3 % (0.0-10.0); HEMATOCRIT 34.2 % (37.0-47.0); IMM GRAN# 0.03 X1000 (0.0-0.04); IMM GRAN% 0.4 % (0.0-0.5); LYMPH# 1.32 X1000 (1.2-3.4); LYMPH% 17.8 % (20.5-51.1); MCH 26.4 PG (27-31); MCHC 32.2 g/dL (33-37); MONO# 1.42 X1000 (0.11-0.59); MONO% 19.1 % (1.7-9.3); MPV 10.7 FL (7.4-10.4); NEUT# 4.59 X1000 (1.4-6.5); NEUT% 61.9 % (42.2-75.2); PLT 269 X1000 (130-400); RBC 4.17 XMIL (4.2-5.4); RDW 16.8 % (11.5-14.5); WBC 7.42 X1000 (4.8-10.8)
[2019-04-03 09:59] LABS: AGAP 15; BUN 13 mg/dL (8-22); CALCIUM 8.1 mg/dL (8.8-10.2); CHLORIDE 100 mmol/L (98-107); COSMO 273; CREATININE 0.6 mg/dL (0.5-0.9); ESTIMATED GFR > 60; GLUCOSE 77 mg/dL (70-104); MAGNESIUM 1.7 mg/dL (1.5-2.7); POTASSIUM 3.4 mmol/L (3.5-5.1); SODIUM 137 mmol/L (136-145); TCO2 22 mmol/L (25-35)
[2019-04-03] MEDS: LOVENOX SUBQ SCH (10:17)
[2019-04-03] MEDS ORDERED: CALAMINE LOTION TOP PRN (18:08)
[2019-04-03] MEDS ORDERED: AYR NASAL SPRAY NAS PRN (18:09)
--- NOTE | 2019-04-03 18:20 | EKG Report ---
Test Performed on : 04/03/2019 5:59:33 PM Test Reason : Tachycardia. Evaluate for rhythm Blood Pressure : / mmHG Vent. Rate : 102 BPM Atrial Rate : 102 BPM P-R Int : 130 ms QRS Dur : 084 ms QT Int : 330 ms P-R-T Axes : 067 020 037 degrees QTc Int : 430 ms Sinus tachycardia. Otherwise normal ECG When compared with ECG of 22-SEP-2011 13:55, Questionable change in QRS axis Confirmed by Viv ROBLES, Krishna Mendez ([id number]) on 04/07/2019 1:02:37 PM
--- NOTE | 2019-04-03 19:17 | PROGRESS NOTE ---
DATE: 04/03/2019 INTERVAL HISTORY: No acute events overnight. She has not had return of her bowel function so she is still n.p.o. The patient's family had several questions regarding surgery, possible postoperative course, ileus. I answered all of them. She is denying any nausea, vomiting, though she has a nasogastric tube. She has not been passing gas. OBJECTIVE: Vitals: Temperature 98.9 degrees, pulse 118, respiratory rate 20, blood pressure 125/75, saturating 100% on 2 L nasal cannula. She did have slight hypoxia with saturation 85%, so she was started on nasal cannula. General: Does not appear in any acute distress. She appears pleasant. HEENT: She has a nasogastric tube with 180 mL output in last 24 hours. Oral cavity is moist. Lungs: Air entry bilaterally equal. No wheeze or rhonchi. She is not able to make deep enough breath. She has occasional cough. Cardiovascular: S1, S2 normal. Regular. No murmur, rub or gallop. Abdomen: Soft. Midline scar of laparotomy which is dressed. I could appreciate bowel sounds, especially right lower quadrant, mild tenderness generalized. Extremities: No lower extremity edema. Neurologic: She is alert and oriented x3. LABORATORY DATA: Suggestive of normocytic anemia, normal platelet count. Her potassium is 3.4, which is currently being repleted. Her magnesium is 1.7. There is also some contact dermatitis over anterior abdominal wall where the leads were placed. She had questions about possibly steroid injection in the right hip joint for her sacroiliac joint pain, which I recommended against considering her recent surgery. IMAGING: No new imaging today. ASSESSMENT AND PLAN: 1. Small bowel obstruction with prior history of hysterectomy, gastric bypass and small bowel obstruction requiring bowel resection and cholecystectomy. She did not improve with nonoperative management and now status post laparotomy and lysis of adhesions on April 01. She has not been passing gas. I will continue NG tube management, intravenous hydromorphone DIE ENGRAVING SUPERVISOR pump. As per surgery recommendation, I will keep her n.p.o. If she does not have return of bowel function, I will consider starting her on intravenous Clinimix tomorrow. 2. Postoperative tachycardia. The patient has been n.p.o. EKG had sinus tachycardia. I will change patient's fluids to D5 lactated Ringer's. Continue intravenous hydration. 3. Others: She has history of fibromyalgia and chronic pain. I will resume her topiramate, amitriptyline, aspirin, celecoxib eventually when she is able to take by mouth. Her gram- negative rods in the urine have been asymptomatic, which does not require treatment at the moment. 4. Deep venous thrombosis prophylaxis: Enoxaparin. I will also check blood sugars every 4 hours. DISPOSITION: I will continue to monitor patient inside hospital as we await resumption of bowel movement. Plan of care discussed with her and multiple family members. All questions have been answered. cc: Keshav Garzon MD
[2019-04-03] MEDS: D5 LR 1,000 ML IV SCH (20:47)
[2019-04-03] MEDS: POTASSIUM CHLORIDE 20 MEQ/SWI 20 MEQ/100 ML IVPB IV SCH (20:48)
[2019-04-03] MEDS: LR 1,000 ML IV SCH (23:04)
[2019-04-04] MEDS: POTASSIUM CHLORIDE 20 MEQ/SWI 20 MEQ/100 ML IVPB IV SCH (00:05)
[2019-04-04] MEDS: SODIUM CHLORIDE 0.9% INJ SCH ×2 (01:59→07:27)
[2019-04-04] MEDS: PROTONIX IV SCH ×2 (01:59→03:15)
[2019-04-04] MEDS ORDERED: TYLENOL PO PRN (04:54)
--- NOTE | 2019-04-04 06:59 | GENERAL SURGERY PROGRESS NOTE ---
DATE: 04/04/2019 SUBJECTIVE: Patient seems to be doing okay. Her main complaint is hip pain. She says she has had injections previously in this hip before [facility] [place], and she is having similar issues. OBJECTIVE: Vital Signs: Patient is currently afebrile with a temperature max of 100.2, but otherwise she has been hemodynamically stable. General: No acute distress. Cardiovascular: Regular rate and rhythm. Lungs: Grossly clear. Abdomen: Soft, appropriately tender. Dressing in place. Bowel sounds faintly auscultated. ASSESSMENT AND PLAN: A 53-year-old female, currently postoperative day #3 from exploratory laparotomy with lysis of adhesions. Postoperative state. At this time, we will clamp her NG tube and let her have sips of clears. Told her to let the nurses know if she has any nausea, so we can unclamp the nasogastric tube. Given the fact she is having some hip pain, we will get physical therapy to see her. If she does have an issue, may need to get Orthopedics involved, but at this time, we will monitor. This sounds like a chronic problem. Otherwise, continue routine postoperative care. She does have SCDs ordered and she is on Lovenox. cc: Shoaib Medina MD
[2019-04-04 07:29] LABS: AGAP 9; BUN 4 mg/dL (8-22); CALCIUM 7.6 mg/dL (8.8-10.2); CHLORIDE 100 mmol/L (98-107); COSMO 269; CREATININE 0.5 mg/dL (0.5-0.9); ESTIMATED GFR > 60; GLUCOSE 107 mg/dL (70-104); PHOSPHORUS 2.4 mg/dL (2.7-4.5); POTASSIUM 3.5 mmol/L (3.5-5.1); SODIUM 136 mmol/L (136-145); TCO2 27 mmol/L (25-35)
[2019-04-04 07:39] LABS: BASO# 0.02 X1000 (0.0-0.2); BASO% 0.3 % (0.0-0.8); EOS# 0.12 X1000 (0.0-0.7); EOS% 1.5 % (0.0-10.0); HEMOGLOBIN 9.1 g/dL (12.0-16.0); LYMPH# 1.16 X1000 (1.2-3.4); LYMPH% 14.8 % (20.5-51.1); MCH 25.5 PG (27-31); MCHC 31.4 g/dL (33-37); MCV 81.2 FL (81-99); MONO# 1.54 X1000 (0.11-0.59); MONO% 19.7 % (1.7-9.3); MPV 10.1 FL (7.4-10.4); NEUT# 4.98 X1000 (1.4-6.5); NEUT% 63.7 % (42.2-75.2); PLT 254 X1000 (130-400); RBC 3.57 XMIL (4.2-5.4); RDW 16.1 % (11.5-14.5); WBC 7.82 X1000 (4.8-10.8)
[2019-04-04] MEDS: D5 LR 1,000 ML IV SCH (08:32)
[2019-04-04] MEDS: LOVENOX SUBQ SCH (10:34)
[2019-04-04] MEDS: NS 1,000 ML IV SCH ×2 (11:21→21:09)
--- NOTE | 2019-04-04 14:46 | Diag Imaging Result Doc PS360 ---
EXAM: CHEST-2 VIEWS 04/04/2019 HISTORY: Rule out pneumonia TECHNIQUE: PA and lateral chest COMMENT: There is a left pleural effusion. There is an NG tube with its tip below the diaphragm. Compared to 03/31/2019 the pleural fluid collection on the left is worse and there is presumably also worsened compressive atelectasis. IMPRESSION: Left pleural effusion and lower lobe atelectasis. Electronically signed by Norm Malik 04/04/2019 2:43 PM
--- NOTE | 2019-04-04 14:48 | PROGRESS NOTE ---
DATE: 04/04/2019 INTERVAL HISTORY: No acute events overnight. She had bowel sounds and she has been started on clear liquid diet. SUBJECTIVE: She has not passed any gas so far. She says her abdominal pain is currently at baseline. It has not started getting worse after eating. She is coughing and she thinks it is because of her sinus problem and she has been coughing since admission, but she is not bringing up any expectoration. She is denying any burning. However, she is not able to make it to the bathroom and she says that is normal for her. VITAL SIGNS: Temperature 98.6 degrees, pulse 98, respiratory rate 20, blood pressure 120/70. She is saturating 100% on room air. PHYSICAL EXAMINATION: General: Does not appear in acute distress. Oral cavity is dry. She has a nasal cannula, which is clamped. Air entry bilaterally equal. No wheeze or rhonchi. Examination is limited as she is not able to take deep enough breath and her breath efforts are decreased. S1, S2 normal. Regular. Tachycardic. No murmur, rub, or gallop. Abdomen is distended. There is a midline laparotomy scar. Tympanic to percussion. Bowel sounds are auscultated. No lower extremity edema. She is drowsy, but arousable, alert and oriented x3. Input and output suggests she had 5 continent voids not measured. LABS: Suggestive of no leukocytosis, her hemoglobin is 9.1, platelet count is 254,000. Her BUN is 4 and creatinine of 0.5. Phosphate is 2.4. Microbiology, urine culture is growing Escherichia coli; however, she is not having any symptoms. IMAGING: No new imaging. Electrocardiogram performed, had sinus tachycardia yesterday. ASSESSMENT AND PLAN: 1. Small bowel obstruction with prior history of cholecystectomy, hysterectomy and gastric bypass, which did not get better with nonoperative management and now status post laparotomy and lysis of adhesions on April 01. She is developing postoperative ileus. However, she has bowel sounds today. Surgical team has started her on clear liquid diet. We will continue to assess her progress on that. Continue hydromorphone TECHNICAL SUPPORT COORDINATOR pump. 2. Postoperative tachycardia. Continue D5 lactated Ringer's. EKG suggests sinus tachycardia. I will get x-ray of chest to rule out pneumonia since she has been coughing. Though urine culture is growing Escherichia coli, she is not having any symptoms of it and it is likely asymptomatic bacteriuria. 3. Others. She has history of fibromyalgia and chronic pain and I will resume her amitriptyline, aspirin, celecoxib once her oral intake is consistent. She also has history of chronic right sacroiliac joint pain for which she has periodic steroid injections. DVT prophylaxis, enoxaparin. DISPOSITION: I will continue to monitor patient inside the hospital. Plan of care discussed with her. All of her questions have been answered. cc: Keshav Garzon MD MTDD
[2019-04-04] MEDS: LR 1,000 ML IV SCH (22:45)
[2019-04-04] MEDS: BENADRYL IV PRN (23:12)
[2019-04-05] MEDS: NS 1,000 ML IV SCH (02:44)
[2019-04-05] MEDS: D5 LR 1,000 ML IV SCH ×3 (02:44→13:32)
[2019-04-05] MEDS: SODIUM CHLORIDE 0.9% INJ SCH (02:45)
[2019-04-05] MEDS: PROTONIX IV SCH (02:45)
--- NOTE | 2019-04-05 07:02 | GENERAL SURGERY PROGRESS NOTE ---
DATE: 04/05/2019 SUBJECTIVE: The patient seems to be doing okay. She passed a little bit of gas, and is not sick to her stomach. She did have a little bit of nausea, but she says it is related to the sugar in her diet. OBJECTIVE: Vital Signs: The patient is currently afebrile. Her vital signs are stable. General: No acute distress. Cardiovascular: Regular rate and rhythm. Lungs: Grossly clear. Abdomen: Soft. Appropriately tender. Incision is healing well. Bowel sounds auscultated. ASSESSMENT AND PLAN: A 53-year-old female, currently postoperative day #4 from exploratory laparotomy with lysis of adhesions. Postoperative state. At this time, will remove her nasogastric tube, start her on full liquid diet, continue routine postoperative care. Will encourage mobilization, and monitor. cc: Shoaib Medina MD
[2019-04-05] MEDS: MAGNESIUM SULFATE 2 GM/S.W.I. 2 GM/50 ML IVPB IV SCH ×2 (10:01→18:59)
[2019-04-05] MEDS: LOVENOX SUBQ SCH (10:04)
[2019-04-05] MEDS ORDERED: MYRBETRIQ E.R. PO PRN (10:16)
[2019-04-05] MEDS ORDERED: ELAVIL PO SCH (10:30)
[2019-04-05] MEDS ORDERED: NON-FORMULARY MED (Celecoxib 200 MG) PO SCH (10:30)
--- NOTE | 2019-04-05 11:30 | PROGRESS NOTE ---
DATE: 04/05/2019 INTERVAL HISTORY: No acute events overnight. She was able to pass some gas today morning one time. Her diet has been advanced to full liquid diet. Her nasogastric tube has been removed. Her abdominal pain is better controlled. She denies any nausea or vomiting at the moment. She wanted me to restart most of her home medications. VITALS: Temperature 98.1 degrees, pulse 115, respiratory rate 14, blood pressure 133/83, saturating 97% on room air. PHYSICAL EXAMINATION: Not in any acute distress. Oral cavity is moist. Lungs: Air entry bilaterally equal. No wheeze, rhonchi, or crackles. Cardiovascular: S1, S2 normal. Regular. Tachycardic. No murmur, rub, or gallop. Abdomen: Distended. Midline laparotomy scar with jeovany on. It is soft. Generalized tenderness. Tympanic to percussion. Active bowel sounds. No lower extremity edema. She is alert and oriented x3. LABORATORY DATA: No CBC or BMP today. Her magnesium was 1.6, which is currently being repleted. ASSESSMENT AND PLAN: 1. Small bowel obstruction with prior history of cholecystectomy, hysterectomy, gastric bypass. She did not improve on nonoperative management and now is status post laparotomy and lysis of adhesions on April 01. Her postoperative ileus is currently improving at a rather slow pace. Continue full liquid diet while closely monitoring her symptoms. Her nasogastric tube has been removed. She has had passage of gas today. Continue hydromorphone [employer] pump as per surgery recommendation. 2. Postoperative tachycardia. Continue her on D5 lactated Ringer's to prevent hypoglycemia. EKG suggests sinus tachycardia. Chest x-ray did not suggest any definitive pneumonia. In my review, it does appear like atelectasis. Her asymptomatic bacteriuria does not treatment. 3. Others. She has history of fibromyalgia and chronic pain, and I will resume her amitriptyline and celecoxib. She also has a history of chronic right sacroiliac joint pain requiring periodic steroid injection. I will continue enoxaparin for deep venous thrombosis prophylaxis. 4. Disposition. I will continue to monitor the patient inside the hospital. Plan of care discussed with her. Her questions have been answered. cc: MD DIANNA Sosa
[2019-04-05] MEDS: PREMARIN PO SCH (13:05)
[2019-04-05] MEDS: ELAVIL PO SCH (20:47)
[2019-04-05] MEDS: CELEBREX PO SCH (20:47)
[2019-04-05] MEDS: LR 1,000 ML IV SCH (20:47)
[2019-04-06] MEDS: SODIUM CHLORIDE 0.9% INJ SCH (04:07)
[2019-04-06] MEDS: PROTONIX IV SCH (04:07)
[2019-04-06] MEDS: D5 LR 1,000 ML IV SCH (04:07)
--- NOTE | 2019-04-06 06:55 | GENERAL SURGERY PROGRESS NOTE ---
DATE: 04/06/2019 SUBJECTIVE: The patient seems to be doing okay. She has passed gas but has not had a bowel movement. She did have a coughing attack and it hurt her abdominal incision but otherwise is doing okay. OBJECTIVE: Vital Signs: The patient is currently afebrile. Her vital signs are stable. General Examination: No acute distress. Cardiovascular: Regular rate and rhythm. Lungs: Grossly clear. Abdomen: Soft, appropriately tender. ASSESSMENT AND PLAN: A 53-year-old female, currently postoperative day #5 from exploratory laparotomy with lysis of adhesions. Postoperative state. At this time, we will keep her on a full liquid diet until she has had more definitive return of bowel function. We will keep her mobilizing and ambulating. We will continue to monitor her. cc: Shoaib Medina MD
[2019-04-06 07:19] LABS: BASO# 0.01 X1000 (0.0-0.2); BASO% 0.2 % (0.0-0.8); EOS# 0.16 X1000 (0.0-0.7); EOS% 2.8 % (0.0-10.0); HEMATOCRIT 29.3 % (37.0-47.0); HEMOGLOBIN 9.2 g/dL (12.0-16.0); IMM GRAN# 0.02 X1000 (0.0-0.04); IMM GRAN% 0.4 % (0.0-0.5); LYMPH# 1.18 X1000 (1.2-3.4); MCH 25.1 PG (27-31); MCHC 31.4 g/dL (33-37); MCV 80.1 FL (81-99); MONO# 0.99 X1000 (0.11-0.59); MONO% 17.6 % (1.7-9.3); MPV 9.9 FL (7.4-10.4); NEUT# 3.26 X1000 (1.4-6.5); PLT 309 X1000 (130-400); RBC 3.66 XMIL (4.2-5.4); RDW 16.4 % (11.5-14.5); WBC 5.62 X1000 (4.8-10.8)
[2019-04-06 07:32] LABS: AGAP 10; BUN 4 mg/dL (8-22); CALCIUM 7.9 mg/dL (8.8-10.2); CHLORIDE 104 mmol/L (98-107); COSMO 277; CREATININE 0.4 mg/dL (0.5-0.9); ESTIMATED GFR > 60; GLUCOSE 110 mg/dL (70-104); PHOSPHORUS 3.8 mg/dL (2.7-4.5); POTASSIUM 3.2 mmol/L (3.5-5.1); SODIUM 140 mmol/L (136-145); TCO2 26 mmol/L (25-35)
[2019-04-06] MEDS: PREMARIN PO SCH (09:25)
[2019-04-06] MEDS: LOVENOX SUBQ SCH (09:26)
[2019-04-06] MEDS ORDERED: D5 LR 1,000 ML IV SCH (10:45)
--- NOTE | 2019-04-06 11:25 | PROGRESS NOTE ---
DATE: 04/06/2019 INTERVAL HISTORY: No acute events. She continues to pass gas. However, has not had any bowel movement. She denies new complaints. No nausea or vomiting. Abdominal pain is well controlled on [employer] pump. OBJECTIVE: Vital Signs: Temperature 98.5 degrees, pulse 91, respiratory rate 18, blood pressure 114/65, saturating 96% on room air. General: Does not appear in any acute distress. HEENT: Oral cavity is moist. Lungs: Air entry bilaterally equal. No wheeze or rhonchi. Mild crackles, inspiratory, infrascapular region. However, examination is limited since she is not able to take deep enough breaths. Cardiovascular: S1, S2 normal. Regular. Tachycardic. No murmur or gallop. Abdomen: Nondistended. Midline laparotomy scar with jeovany on, without any oozing or discharge. Otherwise, soft. Generalized tenderness. Tympanic to percussion. Active bowel sounds. Extremities: No lower extremity edema. Neurologic: She is alert and oriented x3. LABORATORY DATA: CBC suggestive of microcytosis, stable hemoglobin of 9.2, normal platelet count. Hypokalemia, which is currently being repleted. Her magnesium is 2, and kidney function is normal. IMAGING: No new imaging. ASSESSMENT AND PLAN: 1. Small-bowel obstruction. She has prior history of cholecystectomy, hysterectomy, gastric bypass. She did not improve with nonoperative management, and is now status post laparotomy and lysis of adhesions on 04/01/2019. Her postoperative failure is slowly improving. Continue full liquid diet. Intravenous opioids as per Surgery recommendation. I will appreciate recommendation about stopping patient-controlled analgesia pump, and starting her on intravenous hydromorphone as needed, which the patient is in agreement. 2. Postoperative tachycardia. I will continue her on D5 lactated Ringer's until her oral intake becomes consistent, and also to avoid hypoglycemia. Her bacteriuria in the urine is asymptomatic. Chest x-ray on my review did not have any consolidation. 3. Others. For fibromyalgia and chronic pain, continue her home amitriptyline and celecoxib. She also had history of chronic right sacroiliac joint pain requiring periodic steroid injections. Continue enoxaparin for deep venous thrombosis prophylaxis. 4. Disposition. We are awaiting her to have a bowel movement. At that point, will consider discharging her, which I would anticipate in the next 24 to 48 hours. Plan of care discussed with her. Her questions have been answered. I will let the nursing team know about possibly changing patient-controlled analgesia pump to intravenous hydromorphone if Surgery team was okay. cc: Keshav Garzon MD
[2019-04-06] MEDS: KLOR-CON PO SCH ×2 (11:47→16:59)
[2019-04-06] MEDS: DILAUDID IV PRN ×2 (19:01→23:28)
[2019-04-06] MEDS: CELEBREX PO SCH (22:04)
[2019-04-06] MEDS: ELAVIL PO SCH (22:04)
[2019-04-06] MEDS: LR 1,000 ML IV SCH ×3 (23:28→23:29)
[2019-04-07] MEDS: DILAUDID IV PRN ×7 (02:24→22:22)
[2019-04-07] MEDS: SODIUM CHLORIDE 0.9% INJ SCH (05:38)
[2019-04-07] MEDS: PROTONIX IV SCH (05:38)
--- NOTE | 2019-04-07 09:13 | Diag Imaging Result Doc PS360 ---
EXAM: ABDOMEN FLAT/UPRIGHT 04/07/2019 HISTORY: obstruction TECHNIQUE: Flat and upright abdomen COMMENT: There is barium throughout the colon. There are surgical skin clips in the midline which were not present on 04/01/2019. The dilatation of the small bowel which was present at that time is no longer present. There is some stool in the rectum. The stomach is not distended. There is no evidence of organomegaly or mass. IMPRESSION: Retained barium in the colon. The possibility of mild ileus and/or constipation cannot be excluded. Electronically signed by Norm Malik 04/07/2019 9:10 AM
[2019-04-07] MEDS: PREMARIN PO SCH (09:51)
[2019-04-07] MEDS: LOVENOX SUBQ SCH (09:52)
--- NOTE | 2019-04-07 10:14 | GENERAL SURGERY PROGRESS NOTE ---
DATE: 04/07/2019 SUBJECTIVE: Patient doing well, passing gas, tolerating her full liquids. OBJECTIVE: Vital signs: Patient is currently afebrile. Her vital signs are stable. General: No acute distress. Cardiovascular: Regular rate and rhythm. Lungs: Grossly clear. Abdomen: Soft, appropriately tender. Incision is healing well. Bowel sounds auscultated. ASSESSMENT AND PLAN: A 53-year-old female, currently postoperative day #6 from exploratory laparotomy with lysis of adhesions. Postoperative state. At this time, we will advance her to a GI soft diet. Hopefully, she is getting close to be able to be discharged. We will continue to follow while she is in the hospital. cc: Shoaib Medina MD
[2019-04-07] MEDS: CELEBREX PO SCH (20:43)
[2019-04-07] MEDS: ELAVIL PO SCH (20:43)
--- NOTE | 2019-04-07 22:12 | PROGRESS NOTE ---
DATE: 04/07/2019 SUBJECTIVE: The patient is resting comfortably in bed. She states that she feels a little bit better. She denies having any nausea or vomiting. She has not had a bowel movement yet. OBJECTIVE: Vital Signs: Temperature 98.7 degrees, blood pressure 112/77, heart rate 102, respirations 18, O2 saturation 96% on room air. General: This is a elderly female sitting up in bed in no acute distress. Heart: S1, S2. Normal. Lungs: Clear to auscultation bilaterally. Abdomen: Positive bowel sounds. Soft, nontender, nondistended. Extremities: No edema no cyanosis. Neurologic: The patient is alert and oriented x4. LABS: None. X-RAYS: Abdominal x-ray shows a mild ileus. ASSESSMENT AND PLAN: 1. Small bowel obstruction. The x-ray today shows a mild ileus. Further management as per the general surgeon. 2. Fibromyalgia. Continue on the current pain management regimen. 3. Deep venous thrombosis prophylaxis. Continue on Lovenox. cc: Majo Gray MD
[2019-04-07] MEDS: LR 1,000 ML IV SCH (22:22)
[2019-04-07] MEDS: BENADRYL IV PRN (23:42)
[2019-04-08] MEDS: SODIUM CHLORIDE 0.9% INJ SCH (04:48)
[2019-04-08] MEDS: PROTONIX IV SCH (04:48)
[2019-04-08] MEDS: DILAUDID IV PRN ×2 (04:48→09:23)
[2019-04-08] MEDS ORDERED: MIRALAX PO ONE (05:28)
--- NOTE | 2019-04-08 06:43 | GENERAL SURGERY PROGRESS NOTE ---
DATE: 04/08/2019 SUBJECTIVE: Patient seems to be doing okay. She is passing gas, but still no bowel movement. OBJECTIVE: Vital Signs: Patient is currently afebrile. Her vital signs are stable. General: No acute distress. Cardiovascular: Regular rate and rhythm. Lungs: Grossly clear. Abdomen: Soft and appropriately tender. Bowel sounds auscultated. ASSESSMENT/PLAN: A 53-year-old female, currently postoperative day #7 from exploratory laparotomy, and lysis of adhesions. Postoperative state. At this time, she is on a GI soft diet. Her x-ray showed she still has some retained barium so we will give her some MiraLAX, and see if we can kind of push the barium out before it becomes clogged. Otherwise, I think she is getting close to discharge. cc: Shoaib Medina MD
[2019-04-08 07:08] LABS: BASO# 0.03 X1000 (0.0-0.2); BASO% 0.6 % (0.0-0.8); EOS# 0.17 X1000 (0.0-0.7); EOS% 3.6 % (0.0-10.0); HEMATOCRIT 28.6 % (37.0-47.0); LYMPH# 1.22 X1000 (1.2-3.4); LYMPH% 25.7 % (20.5-51.1); MCH 25.4 PG (27-31); MCHC 31.5 g/dL (33-37); MCV 80.8 FL (81-99); MONO# 0.81 X1000 (0.11-0.59); MONO% 17.1 % (1.7-9.3); MPV 9.8 FL (7.4-10.4); NEUT# 2.52 X1000 (1.4-6.5); PLT 370 X1000 (130-400); RBC 3.54 XMIL (4.2-5.4); RDW 16.4 % (11.5-14.5); WBC 4.75 X1000 (4.8-10.8)
[2019-04-08 07:42] VITALS: BP 118/70
[2019-04-08 07:43] LABS: AGAP 10; BUN 7 mg/dL (8-22); CALCIUM 8.3 mg/dL (8.8-10.2); CHLORIDE 105 mmol/L (98-107); COSMO 279; CREATININE 0.6 mg/dL (0.5-0.9); ESTIMATED GFR > 60; GLUCOSE 87 mg/dL (70-104); PHOSPHORUS 4.9 mg/dL (2.7-4.5); POTASSIUM 4.2 mmol/L (3.5-5.1); SODIUM 141 mmol/L (136-145); TCO2 26 mmol/L (25-35)
[2019-04-08] MEDS: PREMARIN PO SCH ×2 (09:00→09:29)
[2019-04-08] MEDS: LOVENOX SUBQ SCH (09:20)
== END 2019-04-08 11:30 | disposition home or self-care (01) | DRG 337 ==
LOC: P.ED 21:04 → SUATTDRO 21:05 → 4N 03-31 01:14 → SUATTDRO 03-31 01:14 → 4N 04-01 23:34
PROVIDERS: ATTEND Internal Medicine